=== PATIENT | female | born 1990 | race Caucasian/White ===

== ENCOUNTER 2019-03-27 14:43 | Emergency (ER) | payer MEDICAID ==
[~2019-03-27] VITALS: Ht 165.1 cm; Wt 61.4 kg
[2019-03-27 14:51] VITALS: BP 127/81
[2019-03-27 16:14] LABS: CLARITY,URINE CLEAR (Clear); COLOR,URINE YELLOW (Yellow); GLUCOSE, URINE NEGATIVE (Neg); KETONES,URINE NEGATIVE (Neg); LEUKOCYTE ESTERASE ,URINE NEGATIVE (Neg); NITRITES, URINE NEGATIVE (Neg); OCCULT BLOOD,URINE TRACE-INTACT (Neg); PROTEIN,URINE NEGATIVE (Neg); UROBILINOGEN,URINE 0.2 E.U/dL (0.2-1.0)
[2019-03-27 16:15] LABS: URINE HCG NEGATIVE (NEG)
[2019-03-27 16:19] LABS: UA COLLECTION TYPE CLN CATCH MIDSTREAM
[2019-03-27 16:21] LABS: SQUAMOUS EPITHELIAL CELL,UR FEW /LPF (FEW)
[2019-03-27 16:22] LABS: BACTERIA,URINE FEW /HPF (Neg); RBC,URINE 0-2 /HPF (0-2); WBC,URINE 0-4 /HPF (0-4)
[2019-03-27 16:32] LABS: BASOPHILS # (AUTO) 0.1 X10'3 (0-0.2); BASOPHILS % (AUTO) 0.9 % (0-1); EOSINOPHILS # (AUTO) 0.1 X10'3 (0-0.9); EOSINOPHILS % (AUTO) 1.7 % (0-6); HEMATOCRIT 37.5 % (35.0-45.0); HEMOGLOBIN 12.7 g/dl (12.0-16.0); LYMPHOCYTES # (AUTO) 1.9 X10'3 (1.1-4.8); LYMPHOCYTES % (AUTO) 28.7 % (21-51); MEAN CORPUSCULAR HGB CONC 33.8 g/dL (33.0-36.5); MEAN CORPUSCULAR VOLUME 88.9 FL (78-98); MONOCYTES # (AUTO) 0.6 X10'3 (0-0.9); MONOCYTES % (AUTO) 9.5 % (2-12); NEUTROPHILS % (AUTO) 59.2 % (42-75); PLATELET COUNT 294 X10'3 (140-440); RED BLOOD COUNT 4.22 X10'6 (4.20-5.60); RED CELL DISTRIBUTION WIDTH 13.1 % (11.5-14.5); WHITE BLOOD COUNT 6.8 X10'3 (4.5-11.0)
[2019-03-27 16:37] LABS: INR 1.1 INR
[2019-03-27 16:40] LABS: ALANINE AMINOTRANSFERASE 24 U/L (12-78); ALBUMIN 3.5 G/DL (3.4-5.0); ALBUMIN/GLOBULIN RATIO 0.9 (1.1-1.5); ALKALINE PHOSPHATASE 63 IU/L (46-116); ANION GAP 7 (8-16); ASPARTATE AMINO TRANSFERASE 10 U/L (10-37); BILIRUBIN,TOTAL 0.5 MG/DL (0.1-1.0); BLOOD UREA NITROGEN 11 MG/DL (7-18); BUN/CREATININE RATIO 16.4 (6.6-38.0); CALCIUM 9.1 MG/DL (8.5-10.1); CHLORIDE 106 MMOL/L (99-107); CREATININE 0.67 MG/DL (0.40-0.90); GLUCOSE 96 MG/DL (70-104); SODIUM 137 MMOL/L (135-145); TOTAL CARBON DIOXIDE 24.4 MMOL/L (24-32); TOTAL PROTEIN 7.2 G/DL (6.4-8.2); eGFR > 90 ML/MIN
== END 2019-03-27 17:19 | disposition home or self-care (01) ==
LOC: ER 14:46
DX: R10.30 Lower abdominal pain, unspecified (principal); R31.29 Other microscopic hematuria
CPT/HCPCS: 36415; 80053; 81001; 81025; 85025; 85610; 99283

== ENCOUNTER 2020-01-07 14:17 | Emergency (ER) | payer MEDICAID ==
[~2020-01-07] VITALS: Ht 165.1 cm; Wt 65.0 kg
[2020-01-07 14:24] VITALS: BP 125/76
[2020-01-07] MEDS ORDERED: PENI500T2 PO (14:55)
== END 2020-01-07 15:21 | disposition home or self-care (01) ==
LOC: ER 14:17
DX: K08.89 Other specified disorders of teeth and supporting structures (principal)
CPT/HCPCS: 99283

== ENCOUNTER 2025-03-19 14:53 | Emergency (ER) | payer MEDICAID ==
[~2025-03-19] VITALS: Ht 165.1 cm; Wt 65.5 kg
[2025-03-19 15:04] VITALS: TEMP 98.9
[2025-03-19 15:36] LABS: BASOPHILS % (AUTO) 0.4 % (0-1); EOSINOPHILS % (AUTO) 0.5 % (0-6); HEMATOCRIT 37.3 % (35.0-45.0); HEMOGLOBIN 12.3 g/dl (12.0-16.0); LYMPHOCYTES # (AUTO) 1.8 X10'3 (1.1-4.8); LYMPHOCYTES % (AUTO) 18.5 % (21-51); MEAN CORPUSCULAR HEMOGLOBIN 27.5 PG (27.0-31.0); MEAN CORPUSCULAR VOLUME 83.4 FL (78-98); MEAN PLATELET VOLUME 7.6 FL (7.4-10.4); MONOCYTES # (AUTO) 0.5 X10'3 (0-0.9); MONOCYTES % (AUTO) 5.4 % (2-12); NEUTROPHILS # (AUTO) 7.1 X10'3 (1.8-7.7); NEUTROPHILS % (AUTO) 75.2 % (42-75); PLATELET COUNT 310 X10'3 (140-440); RED BLOOD COUNT 4.48 X10'6 (4.20-5.60); RED CELL DISTRIBUTION WIDTH 13.6 % (11.5-14.5); WHITE BLOOD COUNT 9.5 X10'3 (4.5-11.0)
[2025-03-19 15:52] LABS: ALANINE AMINOTRANSFERASE 18 U/L (12-78); ALBUMIN 4.1 G/DL (3.4-5.0); ALBUMIN/GLOBULIN RATIO 1.3 (1.1-1.5); ALKALINE PHOSPHATASE 63 IU/L (46-116); ANION GAP 12 (8-16); ASPARTATE AMINO TRANSFERASE 9 U/L (10-37); BILIRUBIN,TOTAL 1.5 MG/DL (0.1-1.0); BLOOD UREA NITROGEN 9 MG/DL (7-18); BUN/CREATININE RATIO 13.6 (10.0-20.0); CALCIUM 8.7 MG/DL (8.5-10.1); CHLORIDE 103 MMOL/L (99-107); CREATININE 0.66 MG/DL (0.40-0.90); GLUCOSE 135 MG/DL (70-104); LIPASE 12 U/L (16-77); POTASSIUM 3.4 MMOL/L (3.5-5.1); SODIUM 137 MMOL/L (135-145); TOTAL CARBON DIOXIDE 21.9 MMOL/L (24-32); TOTAL PROTEIN 7.2 G/DL (6.4-8.2); eCRCL 110 ML/MIN; eGFR > 90 ML/MIN
[2025-03-19 16:00] LABS: BILIRUBIN,URINE NEGATIVE (Neg); CLARITY,URINE CLOUDY (Clear); COLOR,URINE YELLOW (Yellow); GLUCOSE, URINE NEGATIVE (Neg); KETONES,URINE NEGATIVE (Neg); LEUKOCYTE ESTERASE ,URINE NEGATIVE (Neg); NITRITES, URINE NEGATIVE (Neg); OCCULT BLOOD,URINE SMALL (Neg); PROTEIN,URINE NEGATIVE (Neg); URINE HCG POSITIVE (NEG); UROBILINOGEN,URINE 0.2 E.U/dL (0.2-1.0)
[2025-03-19 16:07] LABS: UA COLLECTION TYPE CLN CATCH MIDSTREAM
[2025-03-19 16:08] LABS: BACTERIA,URINE 2+ /HPF (Neg); SQUAMOUS EPITHELIAL CELL,UR MANY /LPF (FEW); WBC,URINE 0-4 /HPF (0-4)
[2025-03-19 16:09] LABS: MUCUS STRANDS FEW /LPF (Neg); RENAL CELLS, URINE MODERATE /HPF; TRANSITIONAL EPI CELLS,URINE MODERATE /HPF
[2025-03-19 16:39] VITALS: BP 120/79; PULSE 69; RESP 14; O2SAT 100
== END 2025-03-19 16:41 | disposition home or self-care (01) ==
LOC: ER 14:53
DX: O26.891 Other specified pregnancy related conditions, first trimester (principal); N83.201 Unspecified ovarian cyst, right side; Z3A.01 Less than 8 weeks gestation of pregnancy
CPT/HCPCS: 36415; 76801; 80053; 81001; 81025; 83690; 85025; 99284

== ENCOUNTER 2025-07-22 14:49 | Emergency (ER) | payer BC, MEDICAID ==
[~2025-07-22] VITALS: Ht 165.1 cm; Wt 64.2 kg
[2025-07-22 14:58] VITALS: BP 111/67; PULSE 120; RESP 18; O2SAT 96
--- NOTE | 2025-07-22 15:03 | Physician Documentation ---
History of Present Illness ~ Chief Complaint: Tongue Swelling Stated Complaint: TOUNGE PAIN Time Seen by MD: 15:17 OK to notify your PCP?: Yes Primary Medical Doctor: na Source: patient Mode of Arrival: POV Exam Limitations: no limitations HPI 35-year-old female with small abrasion under left side of her tongue. She states that last night she ate some chips and was brushing her teeth and used a cup of water that had a cleaning solution to rinse her mouth. Denies any drainage from the cut. Medication Reconciliation Allergies: Coded Allergies: No Known Allergies (Unverified , 01/07/20) Scheduled Chlorhexidine Gluconate (Chlorhexidine Gluconate), 15 ML PO Q12H Past Medical History Past Medical History: No Pertinent History Lives In: Home Review of Systems All Other Systems at this time: Reviewed and Negative Physical Exam Vital Signs: RN Vital Signs have been reviewed: Yes Pulse Oximetry Reflects: adequate oxygenation Physical Exam General: Alert, no distress. HEENT: No injection, moist mucous membranes. Tiny abrasion vs skin tear to under the left side of her tongue, approx 1cm. No bleeding noted. Neck: Full range of motion. Respiratory: No respiratory distress, equal chest rise and fall. Chest: No accessory muscle use. Cardiovascular: Regular rate and rhythm. Gastrointestinal: Nondistended. Extremities: Normal range of motion, no deformity. Neurologic: Oriented x4. Psychiatric: Normal mood and affect. Skin: Normal color, warm and dry. Progress Results/Orders Reviewed/noted all lab results: Yes Results/Orders Vital Signs 07/22/25 14:58 Temp 98.0 Pulse 120 Resp 18 B/P (MAP) 111/67 Pulse Ox 96 O2 Flow Rate 0 Medical Decision Making Additional info obtained from: old records Findings 35-year-old female with abrasion versus skin tear to the underside of her tongue. This occurred last night after she was exposed to a bleach cleaning solution. Afterwards she rinse out her mouth really well. This morning she did a salt water rinse with her mouth. We discussed that she can continue to do the salt water rinses or I could prescribe some chlorhexidine mouthwash to prevent infection. She would rather have the chlorhexidine washes as she has done that in the past for other reasons. I sent this over to the pharmacy. She can use Tylenol or ibuprofen for pain relief. She agrees to the plan. Additional Comment perforation, laceration, abscess, foreign body, thrush. Departure Disposition: HOME / SELF CARE / HOMELESS Impression: Primary Impression: Tongue injury Condition: Stable Discharge Instructions: General Discharge Instructions Referrals: NO PRIMARY CARE PROVIDER (PCP) Prescriptions Chlorhexidine Gluconate (Chlorhexidine Gluconate) 0.12 % Mouthwash 15 ML PO Q12H for 14 Days, #473 ML 0 Refills Swish and spit Prov: ERICA NOLAN 07/22/25 Education Educated: Patient Educated regarding: diagnosis, treatment, prognosis, need for follow up Additional Comment Medical Screen Exam This patient recieved a medical screening examination. After reviewing the individual's medical complaints with presenting symptoms and performing an appropriate physical examination, it was determined that no immediate life-threatening emergency medical condition is present. This individual is also not a women having contractions. Signature Scribe Signature: . Attestation: Scribed for Erica Nolan by Erica Faustin NP . 07/22/25 15:35 Parts of this note were created using [employer] voice recognition software program. While efforts were made to correct any mistakes made by this voice recognition software program, nonsensical phrases may remain in this note. In addition, there may be errors and syntax, grammar, content and spelling. JERRY STEINBERG NP Jul 22, 2025 15:03 ERICA NOLAN Jul 22, 2025 15:35
[2025-07-22] MEDS ORDERED: CHLO473M2 PO (15:30)
[2025-07-22 15:54] VITALS: TEMP 98
== END 2025-07-22 15:55 | disposition home or self-care (01) ==
LOC: ER 14:49
DX: S00.512A Abrasion of oral cavity, initial encounter (principal); X58.XXXA Exposure to other specified factors, initial encounter; Y93.89 Activity, other specified; Y92.89 Other specified places as the place of occurrence of the external cause; Y99.8 Other external cause status
CPT/HCPCS: 99282

== ENCOUNTER 2025-08-12 15:48 | Emergency (ER) | payer MEDICAID ==
[~2025-08-12 15:48] MED LIST: CHLO473M2 PO
== END 2025-08-12 16:40 | disposition left against medical advice (07) ==
LOC: ER 15:48
DX: M79.676 Pain in unspecified toe(s) (principal); Z53.21 Procedure and treatment not carried out due to patient leaving prior to being seen by health care provider